=== PATIENT | male | born 1980 | race Caucasian/White ===

== ENCOUNTER 2024-01-10 14:04 | Emergency (ER) | payer BC, OTHER ==
[2024-01-10] MEDS ORDERED: NA CHLORIDE 0.9% 1,000 ML ONE (14:56)
[2024-01-10 15:06] LABS: Absolute Basophils 0.1 K/uL (0-0.5); Absolute Eosinophils 0.4 K/uL (0-0.5); Absolute Lymphocytes (CBC) 1.6 K/uL (0.7-4.9); Absolute Monocytes 0.6 K/uL (0.1-1.3); Absolute Neutrophil 5.6 K/uL (1.8-8.0); Basophils % 0.8 % (0-1.3); Eosinophils % 4.7 % (0-4.4); Hematocrit 45.8 % (39.6-49.0); Hemoglobin 15.1 g/dL (13.6-17.9); Lymphocytes % 19.3 % (15.3-44.8); MCV 84.9 fL (80-100); MPV 8.5 fL (7.6-11.3); Monocytes % 7.6 % (3.3-12.3); Neutrophils % 67.6 % (41.7-73.7); Platelets 245 thou/uL (152-406); Red Cell Distribution Width 14.3 % (12.1-15.2)
--- NOTE | 2024-01-10 15:10 | RAD REPORT ---
EXAM DESCRIPTION: CT - Head Brain Wo Cont - 01/10/2024 2:39 pm CLINICAL HISTORY: Dizziness COMPARISON: None TECHNIQUE: Computed axial tomography of the head was obtained. IV contrast was not requested. All CT scans are performed using dose optimization technique as appropriate and may include automated exposure control or mA/KV adjustment according to patient size. FINDINGS: An intracranial bleed is not seen The ventricles are normal in caliber No extra-axial fluid collection is noted. No significant hypodensity within the brain is seen Mild to moderate ethmoid sinusitis IMPRESSION: No acute intracranial abnormality is seen If patient's symptoms persist MRI of the brain would be recommended
[2024-01-10 15:24] LABS: ALT/SGPT 78 U/L (16-61); AST/SGOT 29 U/L (15-37); Albumin 4.1 g/dL (3.4-5.0); Albumin/Globulin Ratio 1.1 (1.1-1.8); Alkaline Phosphatase 87 U/L (45-117); BUN Blood Urea Nitrogen 17 mg/dL (7-18); Bicarbonate 27 mEq/L (21-32); Bilirubin Direct < 0.2 mg/dL (0-0.2); Bilirubin Indirect, Calculated 0.1 mg/dL (0.2-0.8); Bilirubin Total 0.3 mg/dL (0.2-1.0); Globulin 3.6 g/dL (2.3-3.5); Glomerular Filtration Rate 91 ml/min (=/>90); Glucose Level 111 mg/dL (74-106); Magnesium 2.3 mg/dL (1.6-2.4); Protein, Total 7.7 g/dL (6.4-8.2); Sodium Level 136 mEq/L (136-145); Troponin High Sensitivity < 3.0 pg/mL (<58.9)
--- NOTE | 2024-01-10 15:45 | EDPHYS ---
Physician Documentation [facility] Name: Elmer Tiwari Age: 43 yrs Sex: Male : 1980 Arrival Date: 01/10/2024 Time: 14:04 Bed 13 Private MD: ED Physician lE Artis HPI: 01/09 15:39 This 43 yrs old Male presents to ER via EMS with complaints of Dizziness. sp3 15:39 43-year-old male with no past medical history presents with a single episode of near sp3 syncope and vertigo which is now resolved. Episode happened just prior to arrival while he was driving. All symptoms are now resolved. He denies during or currently any headache, fever, URI symptoms, chest pain, shortness of breath, back pain, full syncope, ringing in the ears, loss of balance, numbness or tingling, loss of motor function, speech abnormality, memory loss, or any other signs or symptoms on ROS at this time.. Historical: - Allergies: 14:15 No Known Allergies; db - PMHx: 14:15 None; db - PSHx: 14:15 Appendectomy; Tonsillectomy; db - Immunization history:: Adult Immunizations unknown. - Infectious Disease History:: Denies. - Social history:: Smoking status: Patient denies any tobacco usage or history of. ROS: 15:41 Constitutional: Negative for fever, chills, and weight loss, Eyes: Negative for injury, sp3 pain, redness, and discharge, Neck: Negative for injury, pain, and swelling, Cardiovascular: Negative for chest pain, palpitations, and edema, Respiratory: Negative for shortness of breath, cough, wheezing, and pleuritic chest pain, Abdomen/GI: Negative for abdominal pain, nausea, vomiting, diarrhea, and constipation, Back: Negative for injury and pain, MS/Extremity: Negative for injury and deformity, Skin: Negative for injury, rash, and discoloration, Psych: Negative for depression, anxiety, suicide ideation, homicidal ideation, and hallucinations, Allergy/Immunology: Negative for hives, rash, and allergies, Endocrine: Negative for neck swelling, polydipsia, polyuria, polyphagia, and marked weight changes, Hematologic/Lymphatic: Negative for swollen nodes, abnormal bleeding, and unusual bruising, 15:41 All other systems are negative, Exam: 15:42 Constitutional: This is a well developed, well nourished patient who is awake, alert, sp3 and in no acute distress. Head/Face: Normocephalic, atraumatic. Eyes: Pupils equal round and reactive to light, extra-ocular motions intact. Lids and lashes normal. Conjunctiva and sclera are non-icteric and not injected. Cornea within normal limits. Periorbital areas with no swelling, redness, or edema. ENT: Nares patent. No nasal discharge, no septal abnormalities noted. External auditory canals are clear. Oropharynx with no redness, swelling, or masses, exudates, or evidence of obstruction, uvula midline. Mucous membranes moist. Neck: Trachea midline, no thyromegaly or masses palpated, and no cervical lymphadenopathy. Supple, full range of motion without nuchal rigidity, or vertebral point tenderness. No Meningismus. Chest/axilla: Normal chest wall appearance and motion. Nontender with no deformity. No lesions are appreciated. Cardiovascular: Regular rate and rhythm with a normal S1 and S2. No gallops, murmurs, or rubs. Normal PMI, no JVD. No pulse deficits. Respiratory: Lungs have equal breath sounds bilaterally, clear to auscultation and percussion. No rales, rhonchi or wheezes noted. No increased work of breathing, no retractions or nasal flaring. Abdomen/GI: Soft, non-tender, with normal bowel sounds. No distension or tympany. No guarding or rebound. No evidence of tenderness throughout. Back: No spinal tenderness. No costovertebral tenderness. Full range of motion. Skin: Warm, dry with normal turgor. Normal color with no rashes, no lesions, and no evidence of cellulitis. MS/ Extremity: Pulses equal, no cyanosis. Neurovascular intact. Full, normal range of motion. Neuro: Awake and alert, GCS 15, oriented to person, place, time, and situation. Cranial nerves II-XII grossly intact. Motor strength 5/5 in all extremities. Sensory grossly intact. Cerebellar exam normal. Normal gait. Psych: Awake, alert, with orientation to person, place and time. Behavior, mood, and affect are within normal limits. 15:42 ECG was reviewed by the Attending Physician. EKG demonstrates normal sinus rhythm at 75 bpm with normal intervals, normal QRS, normal axis, nonspecific ST's ST segments without evidence of acute ischemia. Vital Signs: 14:13 BP 118 / 87; Pulse 64; Resp 18; Temp 98.2; Pulse Ox 95% ; Weight 99.79 kg; Height 5 ft. db 6 in. ; 15:27 BP 119 / 73 Supine (auto/reg); Pulse 64 MON; aw1 15:29 BP 130 / 91 Sitting (auto/reg); Pulse 71 MON; aw1 15:31 BP 130 / 86 Standing (auto/reg); Pulse 68 MON; aw1 14:13 Body Mass Index 35.51 (99.79 kg, 167.64 cm) db MDM: 14:17 Patient medically screened. sp3 15:43 Data reviewed: vital signs, nurses notes, lab test result(s), EKG, radiologic studies. sp3 ED course: 43-year-old male with now resolved near syncope and vertigo episode. Consider peripheral vertigo, central vertigo, labyrinthitis, other viral syndrome, ACS, dehydration, electrolyte abnormality, among others. Workup is included EKG, CT scan of the head, laboratory values and general observation. If workup is negative and patient's symptoms are fully resolved. We will safely discharge patient home at this time with PCP follow-up and strict indications to return for any further symptoms. Have also instructed him to not drive alone. I do not believe patient had an epileptic event or a thromboembolic event. Patient is okay with the plan and we will safely discharge him home at this time. Vital signs are normal upon discharge.. 01/09 14:31 Order name: Basic Metabolic Panel; Complete Time: 15: 3 01/09 14:31 Order name: CBC with Diff; Complete Time: 15:01/09 14:31 Order name: LFT's; Complete Time: 15:27 3 01/09 14:31 Order name: Magnesium; Complete Time: 15:27 3 01/09 14:31 Order name: Troponin HS; Complete Time: 15:27 01/09 14:31 Order name: CT Head Brain wo Cont; Complete Time: 15:27 3 01/09 14:31 Order name: EKG - Nurse/Tech; Complete Time: 14:59 3 01/09 14:31 Order name: IV Saline Lock; Complete Time: 14:59 3 01/09 14:31 Order name: Labs collected and sent; Complete Time: 14:59 sp3 01/09 14:31 Order name: Orthostatics; Complete Time: 15:29 sp3 Administered Medications: 14:50 Drug: NS 0.9% IV 1000 ml IV at 1 bolus Per protocol; 1000 mL bolus Route: IV; Rate: 1 rs5 bolus; Site: left antecubital; 15:57 Follow up: Response: No adverse reaction; IV Status: Completed infusion; IV Intake: kc6 1000ml Disposition Summary: 01/10/24 15:44 Discharge Ordered Notes: Location: Home sp3 Condition: Stable sp3 Diagnosis - Near syncope, vertigo sp3 Followup: sp3 - With: Private Physician - When: Upon discharge from the Emergency Department - Reason: Continuance of care Discharge Instructions: - Discharge Summary Sheet sp3 - Near-Syncope sp3 Forms: - Medication Reconciliation Form sp3 - Antibiotic Education sp3 - Prescription Opioid Use sp3 - Patient Portal Instructions sp3 - Leadership Thank You Letter sp3 Signatures: Dispatcher [employer] EDMS El Artis MD MD sp3 Myla Ratliff, RN RN db Magdaleno Mcgraw RN RN rs5 Glo Temple RN kc6 Corrections: (The following items were deleted from the chart) 14:32 14:32 BASIC METABOLIC PANEL+C.LAB.BRZ ordered. EDMS EDMS 14:32 14:32 CBC+H.LAB.BRZ ordered. EDMS EDMS 14:32 14:32 HEPATIC FUNCTION+C.LAB.BRZ ordered. EDMS EDMS 14:32 14:32 MAGNESIUM+C.LAB.BRZ ordered. EDMS EDMS 14:32 14:32 Troponin High Sensitivity+C.LAB.BRZ ordered. EDMS EDMS 14:32 14:32 Head Brain Wo Cont+CT.RAD.BRZ ordered. EDMS EDMS
--- NOTE | 2024-01-10 15:45 | ER ---
Nurse's Notes [facility] Name: Elmer Tiwari Age: 43 yrs Sex: Male : 1980 Arrival Date: 01/10/2024 Time: 14:04 Bed 13 Private MD: Diagnosis: Near syncope, vertigo Presentation: 01/09 14:13 Chief complaint: EMS states: PT CALLED EMS FOR DIZZINESS AND FEELING LIKE WAS GOING TO db PASS OUT WITH SUDDEN NAUSEA WHILE DRIVING. DENIES TAKING ANY DRUGS OR UNKNOWN MEDICATIONS. TOOK ALLERGY PILL THIS AM. RECENTLY HAS BEEN COMPLAINING OF HAVING NO ENERGY. Coronavirus screen: Client denies travel out of the [place] in the last 14 days. At this time, the client does not indicate any symptoms associated with coronavirus-19. Ebola Screen: Patient negative for fever greater than or equal to 101.5 degrees Fahrenheit, and additional compatible Ebola Virus Disease symptoms Patient denies exposure to infectious person. Patient denies travel to an Ebola-affected area in the 21 days before illness onset. No symptoms or risks identified at this time. Initial Sepsis Screen: Does the patient meet any 2 criteria? No. Patient's initial sepsis screen is negative. Does the patient have a suspected source of infection? No. Patient's initial sepsis screen is negative. Risk Assessment: Do you want to hurt yourself or someone else? Patient reports no desire to harm self or others. Onset of symptoms was January 10, 2024. 14:13 Method Of Arrival: EMS db 14:13 Method Of Arrival: EMS: [facility] db 14:13 Acuity: SORIN 3 db 14:17 Care prior to arrival: IV initiated. 20 GA, in the left antecubital area, Glucose db check: 108. Triage Assessment: 14:15 General: Appears in no apparent distress. comfortable, Behavior is calm, cooperative. db Pain: Denies pain. Neuro: Level of Consciousness is awake, alert, obeys commands, Oriented to person, place, time, situation. Neuro: Reports dizziness. Respiratory: Airway is patent Respiratory effort is even, unlabored, Respiratory pattern is regular, symmetrical. Historical: - Allergies: 14:15 No Known Allergies; db - PMHx: 14:15 None; db - PSHx: 14:15 Appendectomy; Tonsillectomy; db - Immunization history:: Adult Immunizations unknown. - Infectious Disease History:: Denies. - Social history:: Smoking status: Patient denies any tobacco usage or history of. Screenin:[facility] ED Fall Risk Assessment (Adult) History of falling in the last 3 months, kc6 including since admission No falls in past 3 months (0 pts) Confusion or Disorientation No (0 pts) Intoxicated or Sedated No (0 pts) Impaired Gait No (0 pts) Mobility Assist Device Used No (0 pt) Altered Elimination No (0 pt) Score/Fall Risk Level 0 - 2 = Low Risk. Abuse screen: Denies threats or abuse. Denies injuries from another. Nutritional screening: No deficits noted. Tuberculosis screening: No symptoms or risk factors identified. Assessment: 15:56 General: Appears in no apparent distress. comfortable, well groomed, well developed, kc6 Behavior is calm, cooperative, appropriate for age. Pain: Denies pain. Neuro: Level of Consciousness is awake, alert, obeys commands, Oriented to person, place, time, situation, Appropriate for age Reports dizziness. Cardiovascular: Capillary refill < 3 seconds. Respiratory: Airway is patent Trachea midline Respiratory effort is even, unlabored, Respiratory pattern is regular, symmetrical. GI: Reports nausea, Patient currently denies abdominal pain, diarrhea, vomiting. : No signs and/or symptoms were reported regarding the genitourinary system. EENT: No signs and/or symptoms were reported regarding the EENT system. Derm: No signs and/or symptoms reported regarding the dermatologic system. Skin is intact, is healthy with good turgor, Skin is pink, warm \T\ dry. Musculoskeletal: No signs and/or symptoms reported regarding the musculoskeletal system. Circulation, motion, and sensation intact. Capillary refill < 3 seconds, Range of motion: intact in all extremities. Vital Signs: 14:13 BP 118 / 87; Pulse 64; Resp 18; Temp 98.2; Pulse Ox 95% ; Weight 99.79 kg; Height 5 ft. db 6 in. ; 15:27 BP 119 / 73 Supine (auto/reg); Pulse 64 MON; aw1 15:29 BP 130 / 91 Sitting (auto/reg); Pulse 71 MON; aw1 15:31 BP 130 / 86 Standing (auto/reg); Pulse 68 MON; aw1 14:13 Body Mass Index 35.51 (99.79 kg, 167.64 cm) db ED Course: 14:13 Patient arrived in ED. db 14:14 El Artis MD is Attending Physician. sp3 14:15 Triage completed. db 14:15 Arm band placed on left wrist. Patient placed in waiting room. db 14:41 CT Head Brain wo Cont In Process Unspecified. EDMS 14:59 Basic Metabolic Panel Sent. [email or web address] 14:59 CBC with Diff Sent. [email or web address] 14:59 LFT's Sent. [email or web address] 14:59 Magnesium Sent. [email or web address] 14:59 Troponin HS Sent. [email or web address] 14:59 Initial lab(s) drawn, by me, sent to lab. EKG done, by ED staff, reviewed by El Artis MD. Maintain EMS IV. Dressing intact. Good blood return noted. Site clean \T\ dry. Gauge \T\ site: 18G LAC. 15:11 Glo Temple, RN is Primary Nurse. kc6 15:56 Patient has correct armband on for positive identification. Bed in low position. Call kc6 light in reach. Side rails up X 1. Adult w/ patient. Client placed on continuous cardiac and pulse oximetry monitoring. NIBP monitoring applied. 16:21 No provider procedures requiring assistance completed. IV discontinued, intact, kc6 bleeding controlled, No redness/swelling at site. Pressure dressing applied. Administered Medications: 14:50 Drug: NS 0.9% IV 1000 ml IV at 1 bolus Per protocol; 1000 mL bolus Route: IV; Rate: 1 rs5 bolus; Site: left antecubital; 15:57 Follow up: Response: No adverse reaction; IV Status: Completed infusion; IV Intake: kc6 1000ml Medication: 16:21 VIS not applicable for this client. kc6 Intake: 15:57 IV: 1000ml; Total: 1000ml. kc6 Outcome: 15:44 Discharge ordered by . sp3 16:21 Discharged to home ambulatory, with significant other, kc6 16:21 Condition: improved 16:21 Discharge instructions given to patient, Instructed on discharge instructions, follow up and referral plans. Demonstrated understanding of instructions, follow-up care, 16:21 Patient left the ED. kc6 Signatures: Dispatcher [employer] EDMS El Artis MD MD sp3 Glo Temple, MILLY RN kc6 Myla Ratliff RN RN db Magdaleno Mcgraw, RN RN rs5 Shruthi Walker aw1 Leighton Vee [email or web address]
[2024-01-10 16:38] VITALS: TEMP 98.2; O2SAT 95
[2024-01-10 16:56] VITALS: BP 130/86
--- NOTE | 2024-01-12 16:57 | EKG ---
Test Date: 2024-01-10 Test Time: 14:53:50 Chief Crew Scheduler: ENRIKE MEASUREMENT RESULTS: Intervals: Rate: 75 KS: 182 QRSD: 96 QT: 396 QTc: 442 [facility]: P: 29 KS: 182 QRS: 94 T: 14 INTERPRETIVE STATEMENTS: Normal sinus rhythm Rightward axis Cannot rule out Inferior infarct, age undetermined Cannot rule out Anterior infarct, age undetermined Abnormal ECG Compared to ECG 02/10/1999 11:32:00 Right-axis deviation now present Sinus bradycardia no longer present Myocardial infarct finding still present Electronically Signed On 01-12-24 16:50:06 CDT by Artemio Rayo
== END 2024-01-10 16:21 | disposition home or self-care (01) ==
LOC: ER 14:04
DX: R55 Syncope and collapse (principal); R42 Dizziness and giddiness
CPT/HCPCS: 93005; 85025; 80048; 36415; 83735; 80076; 84484; 70450; 96360; 99284; J7030